=== PATIENT | female | born 1945 | race Hispanic/Latino ===

== ENCOUNTER 2017-01-29 18:16 | Inpatient (IN) | payer MEDICARE, BC ==
[2017-01-29] MEDS ORDERED: Ondansetron HCl/PF 4 MG/2 ML Vial ONE (18:47)
[2017-01-29] MEDS ORDERED: Ketorolac Tromethamine 30 MG/ML VIAL ONE (18:47)
[2017-01-29 19:25] LABS: #Basophils 0.1 thou/uL (0.0-0.2); #Eosinphils 0.2 thou/uL (0.0-0.7); #Lymphocytes 4.2 thou/uL (1.20-3.40); #Monocytes 0.9 thou/uL (0.11-0.59); #Neutrophils 4.6 thou/uL (1.40-6.50); %Basophils 0.8 % (0.0-1.0); %Eosinophils 1.7 % (0.0-10.0); %Lymphocytes 42.6 % (21.0-51.0); %Monocytes 8.9 % (0.0-10.0); Hematocrit 41.1 % (36.0-47.0); Mean Platelet Volume 7.8 fL (7.4-10.4); Red Blood Cell (RBC) Count 4.25 mill/uL (4.20-5.40); White Blood Cell (WBC) Count 9.9 thou/uL (4.8-10.8)
--- NOTE | 2017-01-29 19:30 | CT ---
NONCONTRAST ABDOMEN AND PELVIS CT: Indication: Pain. FINDINGS: No acute abnormality at the lung bases, where visualized. No urolithiasis or obstructive uropathy. T here is moderate distention of the gallbladder with slight increased density intraluminally. Evaluat ion otherwise limited on the basis of noncontrast technique. Evidence of post-operative change at th e distal bowel noted. No free air. IMPRESSION: 1. No urolithiasis or obstructive uropathy. 2. Moderate distention of the gallbladder. This could be further assessed with gallbladder ultrasou nd as necessary. POS: [facility]
[2017-01-29 19:44] LABS: Lactic Acid - Sepsis 0.9 mmol/L (0.5-2.2)
[2017-01-29 19:48] LABS: ALT (SGPT) 17 U/L (8-55); AST (SGOT) 33 U/L (5-34); Alkaline Phosphatase 86 U/L (40-150); Anion Gap 12 mmol/L (10-20); BUN (Urea Nitrogen) 20 mg/dL (9.8-20.1); Bilirubin, Total 0.5 mg/dL (0.2-1.2); Calc. Creatinine Clearance 0 mL/min (70-130); Calcium 9.9 mg/dL (7.8-10.44); Carbon Dioxide 26 mmol/L (23-31); Chloride 104 mmol/L (98-107); Estimated GFR-MDRD 75; Globulin 3.5 g/dL (2.4-3.5); Lipase 30 U/L (8-78); Protein, Total 7.7 g/dL (6.0-8.3)
[2017-01-29 19:51] LABS: Troponin I Less than 0.010 ng/mL (< 0.028)
--- NOTE | 2017-01-29 20:46 | ULT ---
AORTIC ULTRASOUND: History: Abdominal pain. Technique: Multiple longitudinal and transverse images of the abdominal aorta using a multihertz cur vilinear transducer. FINDINGS: Real-time, color flow, and spectral waveform doppler analysis demonstrates the abdominal aorta to be unremarkable. No evidence of abdominal aortic aneurysm is seen. Proximal abdominal aorta diameter o f 1.3 cm, mid abdomen 1.3 cm and distal abdominal aorta 1.2 cm. No evidence of aortic aneurysm or di ssection seen. IMPRESSION: Normal abdominal aortic ultrasound. No evidence of aneurysm or dissection seen. POS: [facility]
[2017-01-29] MEDS ORDERED: Morphine 2 MG/ML SYRINGE ONE (21:27)
--- NOTE | 2017-01-29 22:05 | ULT ---
GALLBLADDER ULTRASOUND: Clinical history: Epigastric pain. Back pain. FINDINGS: There is distention of the gallbladder. No shadowing cholelithiasis. There are subtle, low level ech os which may be on the basis of gallbladder sludge. No gallbladder wall thickening. There is dilatat ion of the common duct up to 8 mm in diameter. No pericholecystic fluid. Bautista's sign is reported a s positive by the patient biller. Incidental note of mild dilatation of the right renal collecting syst em. There is generalized mild heterogeneity of the hepatic parenchyma. IMPRESSION: 1. Moderately distended gallbladder with lower level echos which may relate to gallbladder sludge. M urphy's sign is reported as positive by the patient biller. Recommend clinical correlation. 2. Additional details as described. POS: [facility]
[2017-01-29] MEDS ORDERED: Levofloxacin 500 mg/D5W 100 ml Premix Bag ONE (23:08)
[2017-01-29] MEDS ORDERED: Dextrose 50% Abboject 50 ML SYRINGE SLOW IVP PRN (23:20)
[2017-01-29] MEDS ORDERED: Ondansetron ODT 4 MG TAB PO PRN (23:20)
[2017-01-29] MEDS ORDERED: hydrALAZINE 20 MG/ML VIAL SLOW IVP PRN (23:20)
[2017-01-29] MEDS ORDERED: Dextrose 5% in Water 1,000 ML IV PRN (23:20)
[2017-01-29] MEDS ORDERED: Ondansetron HCl/PF 4 MG/2 ML Vial IVP PRN (23:20)
[2017-01-29] MEDS ORDERED: Morphine 2 MG/ML SYRINGE IVP PRN ×2 (23:20)
[2017-01-29] MEDS ORDERED: Ondansetron ODT 8 MG TAB SL PRN (23:22)
[2017-01-30] MEDS ORDERED: Ondansetron HCl/PF 4 MG/2 ML Vial IVP PRN (00:07)
[2017-01-30] MEDS ORDERED: Ondansetron ODT 4 MG TAB SL PRN (00:07)
[2017-01-30] MEDS ORDERED: Morphine 2 MG/ML SYRINGE SLOW IVP PRN (00:10)
[2017-01-30] MEDS: Ketorolac Tromethamine 30 MG/ML VIAL IVP SCH ×5 (00:30→23:27)
[2017-01-30] MEDS: Sodium Chloride 0.9% 1,000 ML IV SCH ×2 (00:31→08:52)
[2017-01-30] MEDS: Acetaminophen 1,000 MG in Premix Bag 1 BAG IVPB SCH ×4 (00:31→18:02)
[2017-01-30] MEDS: Lactated Ringer's 1,000 ML IV SCH ×3 (00:35→15:49)
[2017-01-30 00:59] VITALS: BMI 43.9
--- NOTE | 2017-01-30 06:00 | HP ---
HISTORY OF PRESENT ILLNESS: Iman Scruggs is a 71-year-old female who has had 5-6 months episodic r ight upper quadrant pain, and flank radiation. This is come and go, she experienced pressure in her upper abdomen along with the symptoms she has been experienced for sometime, who presents because t his episode was especially severe. She is followed by Dr. Merrill Spencer. Abdominal pelvis CAT sca n obtained revealed gallbladder distention, otherwise unremarkable. Abdominal ultrasound reveals mu ltiple gallbladder sludge, sonographic positive Bautista's sign, and bile duct of 8 mm. Abdominal aor tic ultrasound is negative. White count is 9, hemoglobin 13. Liver function test negative. The pa tient remains painful and tender. I have been asked to see her regarding cholecystitis. ALLERGIES: None. TOBACCO: None. ALCOHOL: None. MEDICATIONS: None. PAST SURGICAL HISTORY: A year and a half ago, the patient underwent total abdominal hysterectomy, s plenectomy, colostomy, subsequent colostomy reversal in 2016 for ovarian cancer. She was treated at [facility]. She underwent chemotherapy. She reports no evidence of disease. She has a midline incision from her upper abdomen to her pubis. MEDICATIONS: Tramadol, sertraline, pravastatin, hydrochlorothiazide. REVIEW OF SYSTEMS: Ten-point noncontributory. PHYSICAL EXAMINATION: VITAL SIGNS: Blood pressure 130/74, respiratory rate 20. GENERAL: The patient is in no acute distress. HEENT: Sclerae are nonicteric. SKIN: Nonjaundiced. LUNGS: Clear to auscultation. CARDIAC: Regular rate and rhythm without murmur or gallop. ABDOMEN: Soft, tenderness in right upper quadrant with guarding, positive Bautista's sign. EXTREMITIES: Unremarkable. NEUROLOGIC: Intact. No lymphadenopathy in neck, groins, axilla. LABORATORY DATA: Comprehensive metabolic profile was normal. CBC is normal. ASSESSMENT AND PLAN: Cholecystitis and cholelithiasis. I would recommend laparoscopic video cholec ystectomy. Risk of bleeding, infection, reoperation, possibility of open operation, possibility of biliary injury discussed. She consents and questions answered. We will plan laparoscopic cholecyst ectomy tomorrow. Keep n.p.o.
[2017-01-30] MEDS: Famotidine/PF 20 mg/2ml Vial SLOW IVP SCH ×2 (08:42→22:06)
[2017-01-30] MEDS: Enoxaparin Sodium 40 MG/0.4 ML SYRINGE SC SCH (08:43)
[2017-01-30] MEDS ORDERED: Fentanyl 250 MCG/5 ML VIAL ONE (16:36)
[2017-01-30] MEDS ORDERED: Midazolam HCl 2 mg/2 ml Vial ONE (16:36)
[2017-01-30] MEDS ORDERED: Bupivacaine PF 0.5% 30 ML VIAL ONE (16:49)
[2017-01-30] MEDS ORDERED: Lidocaine 2% w/Epinephrine 1:200K 20 ML VIAL ONE (16:49)
[2017-01-30] MEDS ORDERED: Iothalamate Meglumine 60% 50 ML VIAL FS ONE (17:03)
[2017-01-30] MEDS ORDERED: Glycopyrrolate 0.2 MG/ML 5 ML SYRINGE ONE (17:07)
[2017-01-30] MEDS ORDERED: Ondansetron HCl/PF 4 MG/2 ML Vial ONE (17:07)
[2017-01-30] MEDS ORDERED: Dexamethasone 20 MG/5 ML VIAL ONE (17:07)
[2017-01-30] MEDS ORDERED: Succinylcholine Chloride 20 MG/ML 10 ml SYRINGE FS ONE (17:07)
[2017-01-30] MEDS ORDERED: Lidocaine 1% PF 5 ML VIAL ONE (17:07)
[2017-01-30] MEDS ORDERED: Propofol 200 MG/20 ML VIAL ONE (17:07)
[2017-01-30] MEDS ORDERED: PHENYLEPHRINE-NS 100 MCG/ML 10 ML SYRINGE ONE (17:07)
[2017-01-30] MEDS ORDERED: Meperidine HCl/PF 25 MG/ML VIAL SLOW IVP PRN (19:04)
[2017-01-30] MEDS ORDERED: Promethazine HCl 25 MG/ML VIAL SLOW IVP PRN (19:04)
[2017-01-30] MEDS ORDERED: HYDROmorphone 2 MG/ML VIAL SLOW IVP PRN (19:04)
[2017-01-30] MEDS ORDERED: Morphine Sulfate 2 MG/ML SYRINGE SLOW IVP PRN (19:04)
[2017-01-30] MEDS ORDERED: Fentanyl 100 MCG/2 ML VIAL ONE (19:11)
[2017-01-30] MEDS ORDERED: Acetaminophen 500 MG TAB PO PRN (19:37)
[2017-01-30] MEDS ORDERED: traMADol HCl 50 MG TAB PO PRN ×2 (19:37)
--- NOTE | 2017-01-30 20:29 | RAD ---
INTRAOPERATIVE CHOLANGIOGRAM: 01/30/17 Single intraoperative radiograph of the abdomen is obtained. There is catheterization and injection of the cystic duct with contrast seen in the common hepatic d ucts and common bile ducts. There is flow of contrast into the duodenum. There appears to be a filli ng defect seen in the proximal common bile duct concerning for a possible common bile duct stone jackie malachi a pocket of air. Correlate with fluoroscopic evaluation during the procedure. IMPRESSION: Free flow of contrast into the duodenum. There does appear to be a filling defect seen in the proxim al common bile duct. This may represent gallstone versus air bubble. POS: [facility]
[2017-01-31] MEDS: Lactated Ringer's 1,000 ML IV SCH ×3 (03:50→17:38)
[2017-01-31] MEDS: Ketorolac Tromethamine 30 MG/ML VIAL IVP SCH ×4 (05:24→23:17)
--- NOTE | 2017-01-31 06:25 | OP ---
DATE OF PROCEDURE: 01/30/2017 PREOPERATIVE DIAGNOSES: Cholecystitis, cholelithiasis, extensive adhesions from prior hysterectomy, partial colectomy, colostomy, colostomy reversal and splenectomy. POSTOPERATIVE DIAGNOSES: Cholecystitis, cholelithiasis, extensive adhesions from prior hysterectomy , partial colectomy, colostomy, colostomy reversal and splenectomy. PROCEDURES PERFORMED: Laparoscopic video adhesiolysis extensive for 45 minutes to one hour, laparos copic cholecystectomy and intraoperative cholangiogram. SURGEON: Long Espinosa M.D. ANESTHESIA: General. Local 0.5% Marcaine with epinephrine. PROCEDURE IN DETAIL: The patient taken to the operating room where under general anesthesia, abdome n was prepared with ChloraPrep, draped in routine fashion. Local anesthetic infiltrated into skin a nd subcutaneous tissue about all port sites. The patient had a midline incision from the xiphoid to the pubis. She had a right lower quadrant scar from previous diverting ileostomy. Right subcostal incision made and pneumoperitoneum to 15 mmHg obtained with the Veress needle, replacing it with a 5 port under laparoscopic visualization. There were filmy adhesions around this and was taken down with blunt dissection. Right subcostal incision made and a 5 port placed under laparoscopic visuali zation. Video laparoscope and cold scissors used to take down adhesions. There were adhesions betw een the liver and anterior abdominal wall, these were taken down with careful dissection. I then wa s able to free adhesions to the patient's right abdomen down towards her scar from previous ostomy. There was some visceral adhesions in the midline which were tightly adherent to the abdominal wall and I stayed clear of these under laparoscopic visualization and the right lateral abdomen umbilical level, our incision was made adjacent on the lateral corner of the scar from her diverting ileostom y. A 5 port was placed in a direct laparoscopic visualization staying clear of viscera. Video lapa roscope moved to this port. Further adhesiolysis undertaken freeing the liver and omental adhesions to the anterior abdominal wall and right subxiphoid incision made 11 port placed. At this point, I was able to free the liver more extensively. There were adhesions to the liver edge taken down wit h blunt and sharp dissection using cautery for hemostasis. The gallbladder fundus identified, grasp ed, and reflected cephalad. Infundibulum dissected free. After careful dissection, freeing omental adhesions from about the liver and the gallbladder. Careful dissection revealed the critical view as the cystic artery was doubly clipped and the cystic duct single clipped on the gallbladder side. Opening made in the cystic duct, cholangiocath inserted and cholangiogram was obtained using fluoro scopy revealing free flow of contrast into the duodenum without filling defects in the common hepati c, common bile, left and right hepatic ducts. There was a filling defect in the common duct did juve ear more like a bubble. It was very smooth. It was mobile. It was felt not to be a stone. Carefu l dissection carried out and cholangiograms were normal. Cholangiocath removed. Cystic duct stump doubly clipped. Cystic artery and duct divided and gallbladder dissected free from the liver bed ob taining good hemostasis prior to division of final peritoneal attachments. Gallbladder and contents removed and submitted to Pathology. Good hemostasis ensured. Arixtra placed over the liver surfac e. Irrigant evacuated. All instruments removed and all skin incisions approximated with interrupte d subdermal 4-0 Monocryl and DermaGlue applied.
[2017-01-31 06:51] LABS: #Basophils 0.1 thou/uL (0.0-0.2); #Lymphocytes 1.4 thou/uL (1.20-3.40); #Monocytes 0.8 thou/uL (0.11-0.59); #Neutrophils 6.5 thou/uL (1.40-6.50); %Basophils 0.9 % (0.0-1.0); %Eosinophils 0.1 % (0.0-10.0); %Lymphocytes 15.5 % (21.0-51.0); Hematocrit 33.6 % (36.0-47.0); Mean Platelet Volume 8.4 fL (7.4-10.4); Red Blood Cell (RBC) Count 3.45 mill/uL (4.20-5.40); White Blood Cell (WBC) Count 8.7 thou/uL (4.8-10.8)
[2017-01-31 07:00] LABS: ALT (SGPT) 151 U/L (8-55); AST (SGOT) 197 U/L (5-34); Alkaline Phosphatase 60 U/L (40-150); Anion Gap 12 mmol/L (10-20); BUN (Urea Nitrogen) 15 mg/dL (9.8-20.1); Bilirubin, Total 0.6 mg/dL (0.2-1.2); Calc. Creatinine Clearance 132 mL/min (70-130); Calcium 8.7 mg/dL (7.8-10.44); Carbon Dioxide 22 mmol/L (23-31); Chloride 104 mmol/L (98-107); Estimated GFR-MDRD 86; Globulin 2.8 g/dL (2.4-3.5)
[2017-01-31] MEDS: Famotidine/PF 20 mg/2ml Vial SLOW IVP SCH ×2 (08:46→21:29)
[2017-01-31] MEDS: Hydrochlorothiazide 25 MG TAB PO SCH (08:46)
[2017-01-31] MEDS: Enoxaparin Sodium 40 MG/0.4 ML SYRINGE SC SCH (08:47)
--- NOTE | 2017-01-31 11:30 | PRG ---
DATE OF SERVICE: 01/31/2017 SUBJECTIVE: Ms. Scruggs is one day postoperative laparoscopic cholecystectomy, extensive adhesiolysi s. She has had a prior history of hysterectomy, splenectomy, colon resection, partial hepatectomy, diverting ileostomy and reversal for ovarian cancer. No evidence of disease currently. The patient last night and this morning has had nausea. She reports having experienced nausea postoperative in the past. This was not communicated prior to her surgery. Patient has had Zofran. She has not to lerated liquids. She states that her abdominal pain; however, has resolved. This morning, her whit e count is 8.7, hemoglobin 11.3. Basic metabolic profile; sodium 134, AST and ALT 197 and 151 respe ctfully, bilirubin 0.6. PHYSICAL EXAMINATION: LUNGS: Clear to auscultation. CARDIAC: Regular rate and rhythm without murmur or gallop. ABDOMEN: Soft, bowel sounds present, nondistended. Surgical sites look good. Postoperative tender ness, otherwise abdomen is soft. VITAL SIGNS: Temperature 98.4 degrees, heart rate 91, respiratory rate 16, blood pressure 122/66. ASSESSMENT AND PLAN: Postoperative extensive adhesiolysis and laparoscopic cholecystectomy. We will continue to support her intravenous fluids until she tolerates her diet. We will obtain an magneti c resonance cholangiopancreatography as during her operation, there was a questionable filling defec t during her cholangiogram thought to be probably an air bubble. I reviewed this with Dr. Suresh main, Gastroenterology and he felt that it was so distinct is probably an air bubble given her nausea a nd her large cystic duct, we will obtain magnetic resonance cholangiopancreatography today.
[2017-01-31] MEDS ORDERED: Scopolamine 1.5 mg/72 hour Patch TD SCH (12:00)
[2017-01-31] MEDS ORDERED: Metoclopramide HCl 10 MG/2 ML VIAL IVP PRN (14:37)
--- NOTE | 2017-01-31 17:23 | MRI ---
MRI ABDOMEN WITHOUT CONTRAST MRCP 01/31/17 HISTORY: Laparoscopic cholecystectomy performed yesterday with a filling defect in the proximal common bile d uct on intraoperative cholangiogram. FINDINGS: Changes of cholecystectomy are present with inflammatory changes and small amount of fluid in the ri ght upper quadrant. No abnormal biliary ductal dilatation is seen. No filling defects are seen in th e biliary ducts to suggest choledocholithiasis. Cystic duct remnant is present without filling defec ts to suggest calculi. Pancreatic duct caliber is normal. The patient is post splenectomy. The liver , pancreas, adrenal glands and kidneys are unremarkable. Artifact from air is seen in the right uppe r anterior abdominal wall likely from recent surgery. There is no evidence of aneurysmal dilatation of the abdominal aorta. The bone marrow signal is normal. IMPRESSION: No evidence of choledocholithiasis. POS: [facility]
[2017-02-01] MEDS: Ketorolac Tromethamine 30 MG/ML VIAL IVP SCH ×2 (05:32→12:55)
[2017-02-01] MEDS: Lactated Ringer's 1,000 ML IV SCH (05:36)
[2017-02-01 06:39] LABS: #Basophils 0.1 thou/uL (0.0-0.2); #Eosinphils 0.1 thou/uL (0.0-0.7); #Lymphocytes 2.3 thou/uL (1.20-3.40); #Monocytes 0.7 thou/uL (0.11-0.59); #Neutrophils 7.3 thou/uL (1.40-6.50); %Basophils 1.1 % (0.0-1.0); %Eosinophils 0.6 % (0.0-10.0); %Lymphocytes 22.1 % (21.0-51.0); %Monocytes 6.2 % (0.0-10.0); Hematocrit 33.2 % (36.0-47.0); Mean Platelet Volume 8.2 fL (7.4-10.4); Red Blood Cell (RBC) Count 3.44 mill/uL (4.20-5.40); White Blood Cell (WBC) Count 10.5 thou/uL (4.8-10.8)
[2017-02-01 06:58] LABS: ALT (SGPT) 133 U/L (8-55); AST (SGOT) 129 U/L (5-34); Alkaline Phosphatase 60 U/L (40-150); Anion Gap 12 mmol/L (10-20); BUN (Urea Nitrogen) 11 mg/dL (9.8-20.1); Bilirubin, Total 0.8 mg/dL (0.2-1.2); Calc. Creatinine Clearance 127 mL/min (70-130); Carbon Dioxide 26 mmol/L (23-31); Chloride 104 mmol/L (98-107); Estimated GFR-MDRD 81; Globulin 2.7 g/dL (2.4-3.5); Protein, Total 6.1 g/dL (6.0-8.3)
[2017-02-01] MEDS ORDERED: Mag-Al 1200 mg/1200 mg/30 ML UDCUP PO PRN (08:57)
[2017-02-01] MEDS ORDERED: Famotidine 20 MG TAB PO SCH (09:00)
--- NOTE | 2017-02-01 09:11 | PRG ---
DATE OF SERVICE: 02/01/2017 Iman Scruggs is doing better today. Her nausea is less, although not resolved. MRCP was yesterday for choledocholithiasis. Liver function tests this morning are a normal bilirubin, normal alkaline phosphatase, AST, ALT are diminished at 129 and 133 respectively. Diminished relative to yesterday. Basic metabolic profile is normal. White count 10, hemoglobin of 11. She denies abdominal pain. LUNGS: Clear to auscultation. CARDIAC: Regular rate and rhythm without murmur or gallop. ABDOMEN: Soft, flat, nondistended and nontender. ASSESSMENT AND PLAN: Nausea, vomiting, and postoperatively. Expect discharge home later today if s he tolerates her diet. Would plan follow up in my office in 2-3 weeks. We will check on her later t stas regarding discharge status.
[2017-02-01] MEDS: Hydrochlorothiazide 25 MG TAB PO SCH (10:08)
[2017-02-01] MEDS: Enoxaparin Sodium 40 MG/0.4 ML SYRINGE SC SCH (10:11)
[2017-02-01 12:52] VITALS: BP 129/81; TEMP 98.4
--- NOTE | 2017-02-01 13:51 | PRG ---
DATE OF SERVICE: 02/01/2017 Iman Scruggs is doing well today. She is tolerating her diet better. She is stable for discharge home. She has not had any pain and does not want anything for pain, but I have given her tramadol just in case she needs it. She will follow up in my office in 2-3 weeks. Diet as tolerated. No ac tivity restrictions.
--- NOTE | 2017-02-01 14:21 | DIS ---
DATE OF ADMISSION: 01/29/2017 DATE OF DISCHARGE: 02/01/2017 DISCHARGE DIAGNOSES: Cholecystitis, cholelithiasis. PROCEDURES THIS HOSPITALIZATION: Laparoscopic cholecystectomy, adhesiolysis. HISTORY: A 71-year-old female, 1-1/2 years ago, status post laparotomy, hysterectomy, splenectomy, partial hepatectomy colectomy, diverting ileostomy, subsequent ileostomy reversal, presents with in tractable pain, cholecystitis and cholelithiasis. Ultrasound confirms sludge and stones. Liver fun ction tests were normal. Bile duct 8 mm. The patient was admitted and given intravenous antibiotic s overnight, taken to the operating room for a laparoscopic cholecystectomy. Findings were extensive adhesions making laparoscopic cholecystectomy difficult, although it was acc omplished. Liver had to be mobilized, adhesions taken down from the liver. Gallbladder removed. C holangiogram was obtained, were normal with a questionable filling defect thought to probably be an air bubble. The next morning she was having persistent nausea, although transaminases were elevated , bilirubin and alkaline phosphatase were normal. She denied any pain. She was having persistent n ausea. MRCP was obtained and was normal. The patient continued intravenous fluids and hydration an d convalesced to tolerate her diet and is being discharged home at this time. Ultram #25 given. Fo llow up in my office in 2-3 weeks.
[2017-02-01] MEDS ORDERED: Atorvastatin Calcium 10 MG TAB PO SCH (21:00)
[2017-02-01] MEDS ORDERED: Pravastatin Sodium 40 MG TAB PO SCH (21:00)
== END 2017-02-01 15:15 | disposition home or self-care (01) | DRG 419 ==
LOC: ERS 18:16 → SURG B 22:14
PROVIDERS: ADMIT Specialist; ATTEND Specialist
PROC: 0FT44ZZ Resection of Gallbladder, Percutaneous Endoscopic Approach (ICD-10-PCS; principal; 2017-01-30)
PROC: 0DNU4ZZ Release Omentum, Percutaneous Endoscopic Approach (ICD-10-PCS; 2017-01-30)
PROC: 0FN04ZZ Release Liver, Percutaneous Endoscopic Approach (ICD-10-PCS; 2017-01-30)
PROC: BF101ZZ Fluoroscopy of Bile Ducts using Low Osmolar Contrast (ICD-10-PCS; 2017-01-30)
DX: K80.00 Calculus of gallbladder with acute cholecystitis without obstruction (principal); I10 Essential (primary) hypertension; Z85.43 Personal history of malignant neoplasm of ovary; Z92.21 Personal history of antineoplastic chemotherapy; Z90.49 Acquired absence of other specified parts of digestive tract; E78.5 Hyperlipidemia, unspecified; F32.9 Major depressive disorder, single episode, unspecified
CPT/HCPCS: 36415; 47532; 74176; 74181; 76705; 76775; 80053; 82553; 83605; 83690; 83735; 83880; 84484; 85025; 88304; 96365; 96375; A4216; J0131; J1100; J1610; J1650; J1885; J1956; J2001; J2250; J2270; J2405; J2704; J2765; J3010; Q0162; Q9961; S0020; S0028

== ENCOUNTER 2017-09-21 13:44 | Outpatient (CLI) | payer MEDICARE, BC | END 2017-09-21 13:45 | disposition home or self-care (01) | LOC: BICMAMMO 13:44 | PROVIDERS: ATTEND Internal Medicine Hematology & Oncology | DX: Z12.31 Encounter for screening mammogram for malignant neoplasm of breast (principal); Z85.43 Personal history of malignant neoplasm of ovary | CPT/HCPCS: 77063; 77067 ==

== ENCOUNTER 2017-11-19 09:00 | Day surgery (SDC) | payer MEDICARE, BC ==
[2017-11-19] MEDS ORDERED: diphenhydrAMINE 25 MG CAP PO SCH (09:45)
[2017-11-19] MEDS ORDERED: Acetaminophen 500 MG TAB PO SCH (09:45)
[2017-11-19] MEDS ORDERED: Sodium Chloride 0.9% 30 ML ONE (09:56)
[2017-11-19] MEDS ORDERED: Furosemide 20 MG/2 ML VIAL SLOW IVP SCH (10:00)
--- NOTE | 2017-11-19 10:01 | RAD ---
PA AND LATERAL CHEST: History Shortness of breath. COMPARISON: 06/26/14. FINDINGS: The lungs appear clear of infiltrate. There is mild hyperexpansion and there is mild apical pleural thickening which appears stable. Heart size is normal. Mild aortic calcification. Thoracic vertebr ae maintain height and alignment. IMPRESSION: No acute finding. No significant interval change. POS: [facility]
[2017-11-19 10:36] LABS: Anion Gap 10 mmol/L (10-20); BUN (Urea Nitrogen) 14 mg/dL (9.8-20.1); Calc. Creatinine Clearance 0 mL/min (70-130); Calcium 9.8 mg/dL (7.8-10.44); Carbon Dioxide 25 mmol/L (23-31); Chloride 106 mmol/L (98-107); Estimated GFR-MDRD 81; Glucose 93 mg/dL (83-110); Sodium 137 mmol/L (136-145)
[2017-11-19 15:31] VITALS: BP 135/74; TEMP 98.2
== END 2017-11-19 14:00 | disposition home or self-care (01) ==
LOC: RAD 09:00 → ONC/OP 14:00
PROVIDERS: ATTEND Internal Medicine Hematology & Oncology
DX: D64.9 Anemia, unspecified (principal); D69.6 Thrombocytopenia, unspecified
CPT/HCPCS: 36430; 71046; 80048; 86850; 86900; 86901; A4216; J1940; P9016

== ENCOUNTER 2018-02-18 11:17 | Outpatient (CLI) | payer MEDICARE, BC ==
--- NOTE | 2018-02-18 13:23 | RAD ---
PA AND LATERAL VIEWS CHEST: HISTORY: Cough. FINDINGS: Comparison is made with the exam of 11/19/2017. The heart size is normal. The aorta is tortuous. Th e lungs are expanded with stable biapical pleural thickening. No lobar consolidation, pneumothoraces , or pleural effusions are seen. There are degenerative changes in the spine. IMPRESSION: No radiographic evidence of acute cardiopulmonary process. POS: [facility]
== END 2018-02-18 11:18 | disposition home or self-care (01) ==
LOC: BICRAD 11:17
PROVIDERS: ATTEND Family Medicine
DX: R05 Cough (principal)
CPT/HCPCS: 71046

== ENCOUNTER 2018-11-07 15:46 | Outpatient (CLI) | payer MEDICARE, BC ==
--- NOTE | 2018-11-07 16:55 | MMO ---
Bilateral MAMMO Bilat Screen DDI+DENZEL. CLINICAL HISTORY: Patient is 73 years old and is seen for screening. The patient has no family history of breast cancer. The patient has a history of ovarian cancer. VIEWS: The views performed were: bilateral craniocaudal with tomosynthesis and bilateral mediolateral oblique with tomosynthesis. FILMS COMPARED: The present examination has been compared to prior imaging studies performed at [facility] on 08/18/2013, 05/29/2015, 08/15/2016 and 09/21/2017. MAMMOGRAM FINDINGS: There are scattered fibroglandular densities. There is a mass measuring 6 millimeters seen in the middle region of the left breast at 9 o'clock. In the right breast, there are no suspicious masses, calcifications or areas of architectural distortion. IMPRESSION: MASS IN THE LEFT BREAST REQUIRES ADDITIONAL EVALUATION. SPOT COMPRESSION IS RECOMMENDED. AN ULTRASOUND EXAM IS RECOMMENDED. THE RESULTS OF THIS EXAM WERE SENT TO THE PATIENT. ACR BI-RADS Category 0 - Incomplete: Need additional imaging evaluation. [facility] will notify the patient of the need for additional imaging services. MAMMOGRAPHY NOTE: 1. A negative mammogram report should not delay a biopsy if a dominant of clinically suspicious mass is present. 2. Approximately 10% to 15% of breast cancers are not detected by mammography. 3. Adenosis and dense breasts may obscure an underlying neoplasm. Reported by: April FLEMING Electonically Signed: [id number]
== END 2018-11-07 15:47 | disposition home or self-care (01) ==
LOC: BICMAMMO 15:46
PROVIDERS: ATTEND Family Medicine
DX: Z12.31 Encounter for screening mammogram for malignant neoplasm of breast (principal); N63.20 Unspecified lump in the left breast, unspecified quadrant; Z85.43 Personal history of malignant neoplasm of ovary
CPT/HCPCS: 77063; 77067

== ENCOUNTER 2018-11-12 12:45 | Outpatient (CLI) | payer MEDICARE, BC ==
--- NOTE | 2018-11-12 13:39 | MMO ---
Left Breast MAMMO Unilat Diag DDI LT+DENZEL. CLINICAL HISTORY: Patient is 73 years old and is seen for diagnostic exam. The patient has no family history of breast cancer. The patient has a history of ovarian cancer. VIEWS: The views performed were: left craniocaudal spot compression with tomosynthesis; left mediolateral oblique spot compression with tomosynthesis; and left mediolateral with tomosynthesis. FILMS COMPARED: The present examination has been compared to prior imaging studies performed at [facility] on 08/15/2016, 09/21/2017, 11/07/2018 and 11/12/2018. MAMMOGRAM FINDINGS: There are scattered fibroglandular densities. There is an equal density, oval mass measuring 5 millimeters with circumscribed margins seen in the left breast at 9 o'clock. The mass was shown to be a cyst on ultrasound. There are no suspicious masses, suspicious calcifications, or new areas of architectural distortion. IMPRESSION: THERE IS NO MAMMOGRAPHIC EVIDENCE OF MALIGNANCY. A ROUTINE FOLLOW-UP MAMMOGRAM IN 1 YEAR IS RECOMMENDED. THE RESULTS OF THIS EXAM WERE SENT TO THE PATIENT. ACR BI-RADS Category 2 - Benign finding MAMMOGRAPHY NOTE: 1. A negative mammogram report should not delay a biopsy if a dominant of clinically suspicious mass is present. 2. Approximately 10% to 15% of breast cancers are not detected by mammography. 3. Adenosis and dense breasts may obscure an underlying neoplasm. Reported by: ANAYA VARMA MD Electonically Signed: [id number]
--- NOTE | 2018-11-12 14:34 | ULT ---
LIMITED LEFT BREAST ULTRASOUND: Date: 11/12/18 PROVIDED CLINICAL HISTORY: Abnormal mammogram. FINDINGS: Limited sonographic interrogation of the left breast was performed in the region of mammographic conc freddie. A simple cyst is seen in this location, corresponding to the mammogram finding. IMPRESSION: BI-RADS Category 2 - Benign findings. Return to annual screening mammography recommended. POS: [facility]
== END 2018-11-12 12:46 | disposition home or self-care (01) ==
LOC: BICMAMMO 12:45
PROVIDERS: ATTEND Family Medicine
DX: N63.24 Unspecified lump in the left breast, lower inner quadrant (principal); Z85.43 Personal history of malignant neoplasm of ovary
CPT/HCPCS: 76642; 77065; G0279

== ENCOUNTER 2020-01-21 09:18 | Outpatient (CLI) | payer MEDICARE, BC ==
--- NOTE | 2020-01-21 09:48 | BD ---
EXAM: Bone densitometry using DEXA HISTORY: 74 yo female. Screening for postmenopausal osteoporosis FINDINGS: L1--bone mineral density 0.819 g/sq cm; T score -1.6 ; Z score 0.5 L2--bone mineral density 0.883 g/sq cm; T score -1.3 ; Z score 1.0 L3--bone mineral density 0.898 g/sq cm; T score -1.7 ; Z score 0.7 L4--bone mineral density 0.712 g/sq cm; T score -2.2 ; Z score -0.7 Total L1-L4--bone mineral density 0.827 g/sq cm; T score -2.0 ; Z score 0.3 Left femoral neck--bone mineral density0.633; T score -1.9 ; Z score 0.0 Total proximal left femur--bone mineral density 0.779; T score -1.3 ; Z score 0.3 The 10 year fracture risk for a major osteoporotic fracture is 7% and for a hip fracture is 1.5%. IMPRESSION: Osteopenia
--- NOTE | 2020-01-21 09:56 | MMO ---
Bilateral MAMMO Bilat Screen DDI+DENZEL. CLINICAL HISTORY: Patient is 74 years old and is seen for screening. The patient has no family history of breast cancer. The patient has a history of ovarian cancer. VIEWS: The views performed were: bilateral craniocaudal with tomosynthesis and bilateral mediolateral oblique with tomosynthesis. FILMS COMPARED: The present examination has been compared to prior imaging studies performed at [facility] on 09/21/2017, 11/07/2018 and 11/12/2018. This study has been interpreted with the assistance of computer-aided detection. MAMMOGRAM FINDINGS: There are scattered fibroglandular densities. There are stable benign appearing calcifications seen in both breasts. There are also vascular calcifications. There are no suspicious masses, suspicious calcifications, or new areas of architectural distortion. IMPRESSION: THERE IS NO MAMMOGRAPHIC EVIDENCE OF MALIGNANCY. A ROUTINE FOLLOW-UP MAMMOGRAM IN 1 YEAR IS RECOMMENDED. THE RESULTS OF THIS EXAM WERE SENT TO THE PATIENT. ACR BI-RADS Category 2 - Benign finding MAMMOGRAPHY NOTE: 1. A negative mammogram report should not delay a biopsy if a dominant of clinically suspicious mass is present. 2. Approximately 10% to 15% of breast cancers are not detected by mammography. 3. Adenosis and dense breasts may obscure an underlying neoplasm. Reported by: ANAYA VARMA MD Electonically Signed: [id number]
== END 2020-01-21 09:19 | disposition home or self-care (01) ==
LOC: BICMAMMO 09:18
PROVIDERS: ATTEND Family Medicine
DX: Z12.31 Encounter for screening mammogram for malignant neoplasm of breast (principal); Z13.820 Encounter for screening for osteoporosis; Z78.0 Asymptomatic menopausal state; M85.89 Other specified disorders of bone density and structure, multiple sites; Z85.43 Personal history of malignant neoplasm of ovary
CPT/HCPCS: 77063; 77067; 77080

== ENCOUNTER 2020-02-23 15:24 | Emergency (ER) | payer MEDICARE, BC ==
[~2020-02-23 15:24] MED LIST: Iopamidol-370 76% 500 ML 1 ML ONE
[2020-02-23 16:06] LABS: Hemoglobin 14.5 g/dL (12.0-16.0); Mean Corpuscular HGB CONC 33.2 g/dL (32.0-36.0); Mean Corpuscular Hemoglobin 31.4 pg (27.0-31.0); Mean Corpuscular Volume 94.6 fL (78.0-98.0); Platelet Count 249 thou/uL (130-400); RBC Distribution Width 12.8 % (11.5-14.5); Red Blood Cell (RBC) Count 4.62 mill/uL (4.20-5.40); White Blood Cell (WBC) Count 7.2 thou/uL (4.8-10.8)
[2020-02-23 16:18] LABS: Band 2 % (5-11); Lymphocytes 49 % (21-51); MDiff Complete? YES; Monocytes 10 % (0-10); Neutrophil 31 % (42-75); Platelet Morphology Comment Appears Adequate; RBC Morphology Normal; Reactive Lymphocytes 7 % (0-10)
[2020-02-23 16:24] LABS: ALT (SGPT) 19 U/L (8-55); AST (SGOT) 28 U/L (5-34); Albumin 4.1 g/dL (3.4-4.8); Alkaline Phosphatase 72 U/L (40-110); Anion Gap 15 mmol/L (10-20); BUN (Urea Nitrogen) 14 mg/dL (9.8-20.1); Bilirubin, Total 0.2 mg/dL (0.2-1.2); Calc. Creatinine Clearance 0 mL/min (70-130); Calcium 9.4 mg/dL (7.8-10.44); Carbon Dioxide 26 mmol/L (23-31); Chloride 99 mmol/L (98-107); Estimated GFR-MDRD 66; Globulin 3.5 g/dL (2.4-3.5); Glucose 100 mg/dL (83-110); Potassium 3.4 mmol/L (3.5-5.1); Protein, Total 7.6 g/dL (6.0-8.3); Sodium 137 mmol/L (136-145)
--- NOTE | 2020-02-23 16:41 | RAD ---
Chest one view HISTORY: Weakness. Cough. COVID exposure. COMPARISON: 02/18/2018. FINDINGS: Cardiac silhouette and pulmonary vasculature are unremarkable. Mediastinum is midline with aortic calcification. Lungs are hyperinflated. No lobar consolidation or evidence of pneumothorax. Metallic clips overlie t he upper abdomen. IMPRESSION : Pulmonary hyperinflation appears stable. Atherosclerosis.
--- NOTE | 2020-02-23 17:08 | CT ---
CT OF THE ABDOMEN AND PELVIS WITH IV CONTRAST INDICATION: History of Covid exposure with back pain, left upper quadrant abdominal pain, night sweat s and weakness COMPARISON: CT the abdomen and pelvis with contrast dated December 08, 2014 FINDINGS: ABDOMEN: Lung bases: There are peripheral subpleural groundglass airspace opacities within both lower lobes. Liver: Mild fatty liver Gallbladder: Surgically absent Pancreas: Normal. Adrenal glands: Normal. Spleen: Surgically absent Kidneys and ureters: Normal. No hydronephrosis. Vasculature: There are moderate vascular calcifications seen involving the visualized vasculature. Th ere is extensive surgical clips seen within the retroperitoneum surrounding the aorta. Lymph nodes:No lymphadenopathy. Free fluid in abdomen:No free fluid is evident. PELVIS: Small and large bowel: Postsurgical change of a partial small bowel resection with primary anastomosi s in the right lower quadrant of the abdomen. There is also postsurgical change of a partial colectomy and primary colorectal anastomosis. The small and large bowel are of normal caliber. Appendix:Normal Bladder: Normal. Rectal and perirectal soft tissues:Normal. Reproductive structures: Surgically absent Free fluid in pelvis: No free fluid is evident. Lymphadenopathy pelvis: No lymphadenopathy is evident. Osseous structures: No acute osseous abnormality. No destructive osteolytic or osteoblastic lesion i s identified. There is scattered degenerative and osteoarthritic changes. Soft tissues:Normal. IMPRESSION: 1. Bilateral subpleural groundglass airspace opacities is suspicious for an atypical infectious proce ss. Recommend correlation with Covid testing. 2. Mild fatty liver. 3. Extensive postsurgical change of the abdomen and pelvis.
[2020-02-23 18:42] LABS: Bilirubin Negative (Negative); Blood, Urine Negative (Negative); Clarity Clear (Clear); Glucose, Urine (Dipstick) Normal (Negative); Ketone, Urine Trace mg/dL (Negative); Leukocyte Negative Leu/uL (Negative); Nitrite Negative (Negative); Protein, Urine (Dipstick) Negative (Neg-Trace); Specific Gravity, Urine 1.016 (1.002-1.036); Urobilinogen Normal mg/dL (Less than 2)
[2020-02-24 08:42] LABS: SARS-CoV-2 MS2 Positive; SARS-CoV-2 N Gene Negative; SARS-CoV-2 S Gene Negative; SARS-CoV-2 by NAA Not Detected (NotDetected); SARS-CoV-2 orf1ab Negative
== END 2020-02-23 19:16 | disposition home or self-care (01) ==
LOC: ERS 15:24
DX: R53.1 Weakness (principal); Z20.828 Contact with and (suspected) exposure to other viral communicable diseases; E78.00 Pure hypercholesterolemia, unspecified; I10 Essential (primary) hypertension; F32.9 Major depressive disorder, single episode, unspecified; Z79.899 Other long term (current) drug therapy
CPT/HCPCS: 71045; 74177; 80053; 81003; 83605; 84484; 85025; 93005; 99285; U0003; 36415; 87635; Q9967

== ENCOUNTER 2020-02-28 11:41 | Emergency (ER) | payer MEDICARE, BC ==
[2020-02-28 12:40] LABS: #Basophils 0.2 thou/uL (0.0-0.2); #Lymphocytes 4.6 thou/uL (1.20-3.40); #Monocytes 0.8 thou/uL (0.11-0.59); #Neutrophils 4.2 thou/uL (1.40-6.50); %Basophils 2.1 % (0.0-1.0); %Eosinophils 0.2 % (0.0-10.0); %Lymphocytes 46.5 % (21.0-51.0); %Monocytes 8.6 % (0.0-10.0); %Neutrophils 42.7 % (42.0-75.0); Hemoglobin 15.7 g/dL (12.0-16.0); Mean Corpuscular HGB CONC 34.7 g/dL (32.0-36.0); Mean Corpuscular Hemoglobin 32.5 pg (27.0-31.0); Mean Corpuscular Volume 93.6 fL (78.0-98.0); Platelet Count 199 thou/uL (130-400); RBC Distribution Width 12.6 % (11.5-14.5); Red Blood Cell (RBC) Count 4.82 mill/uL (4.20-5.40); White Blood Cell (WBC) Count 9.8 thou/uL (4.8-10.8)
--- NOTE | 2020-02-28 13:13 | RAD ---
EXAM: Chest one view: HISTORY: Cough, body aches diarrhea COMPARISON: 02/23/2020 FINDINGS: Rotation to the right. Mild hyperinflation. Atherosclerosis of the aorta. Heart size: Within normal limits. Lungs: Clear of acute process. No evidence for confluent lobar pneumonia, significant pleural effusion, acute edema, or pneumothorax , or other significant acute process. IMPRESSION: No significant acute intrathoracic disease.
[2020-02-28 13:23] LABS: ALT (SGPT) 12 U/L (8-55); AST (SGOT) 22 U/L (5-34); Alkaline Phosphatase 64 U/L (40-110); Anion Gap 18 mmol/L (10-20); BUN (Urea Nitrogen) 15 mg/dL (9.8-20.1); Bilirubin, Total 0.4 mg/dL (0.2-1.2); Calc. Creatinine Clearance 0 mL/min (70-130); Calcium 9.8 mg/dL (7.8-10.44); Carbon Dioxide 23 mmol/L (23-31); Chloride 98 mmol/L (98-107); Estimated GFR-MDRD 68; Globulin 3.9 g/dL (2.4-3.5); Glucose 104 mg/dL (83-110); Potassium 3.1 mmol/L (3.5-5.1); Protein, Total 7.9 g/dL (6.0-8.3); Sodium 136 mmol/L (136-145)
[2020-02-28] MEDS ORDERED: Potassium Chloride 20 MEQ TAB ONE (14:04)
== END 2020-02-28 14:17 | disposition home or self-care (01) ==
LOC: ERS 11:41
DX: R05 Cough (principal); R19.7 Diarrhea, unspecified; R53.1 Weakness; Z20.828 Contact with and (suspected) exposure to other viral communicable diseases; I10 Essential (primary) hypertension; E78.5 Hyperlipidemia, unspecified; F32.9 Major depressive disorder, single episode, unspecified; Z79.899 Other long term (current) drug therapy
CPT/HCPCS: 71045; 80053; 83605; 84484; 85025; 93005

== ENCOUNTER 2020-03-01 22:14 | Emergency (ER) | payer MEDICARE, BC ==
[~2020-03-01 22:14] MED LIST changes: +Iopamidol 370 76% 50 ML VIAL FS ONE; -Iopamidol-370 76% 500 ML 1 ML ONE
[2020-03-01] MEDS ORDERED: Lidocaine Viscous Sol 2% 15 ml UD Cup ONE (22:54)
[2020-03-01] MEDS ORDERED: Mag-Al 1200 mg/1200 mg/30 ML UDCUP ONE (22:54)
--- NOTE | 2020-03-01 23:21 | RAD ---
Portable frontal chest radiograph: 03/01/2020 COMPARISON: 02/28/2020 HISTORY: Chest pain FINDINGS: Stable increased linear interstitial density with pulmonary hyperinflation suggesting air t rapping. No pneumothorax or pleural fluid. No focal consolidation or alveolar edema. Multiple postoperative clips are noted in the upper abdomen. Minimal nodularity is noted in the left lung base versus groundglass opacity which may be associated with infectious pneumonitis. IMPRESSION: Subtle hazy density in the left base suspicious for atypical infectious pneumonitis. No f ocal consolidation or alveolar edema. Recommend follow-up imaging following treatment in 4-6 weeks to document resolution unless clinically indicated sooner.
[2020-03-01 23:26] LABS: ALT (SGPT) 15 U/L (8-55); AST (SGOT) 19 U/L (5-34); Albumin 3.6 g/dL (3.4-4.8); Alkaline Phosphatase 58 U/L (40-110); Anion Gap 17 mmol/L (10-20); BUN (Urea Nitrogen) 19 mg/dL (9.8-20.1); Bilirubin, Total 0.4 mg/dL (0.2-1.2); CK (CPK) 22 U/L (29-168); Calc. Creatinine Clearance 0 mL/min (70-130); Calcium 9.2 mg/dL (7.8-10.44); Carbon Dioxide 20 mmol/L (23-31); Chloride 102 mmol/L (98-107); Estimated GFR-MDRD 73; Globulin 3.5 g/dL (2.4-3.5); Glucose 167 mg/dL (83-110); Lipase 432 U/L (8-78); Potassium 3.6 mmol/L (3.5-5.1); Protein, Total 7.1 g/dL (6.0-8.3); Sodium 135 mmol/L (136-145)
[2020-03-01 23:32] LABS: Hemoglobin 14.3 g/dL (12.0-16.0); Mean Corpuscular HGB CONC 31.8 g/dL (32.0-36.0); Mean Corpuscular Hemoglobin 29.3 pg (27.0-31.0); Mean Corpuscular Volume 92.1 fL (78.0-98.0); Mean Platelet Volume 8.8 fL (7.4-10.4); Platelet Count 244 thou/uL (130-400); RBC Distribution Width 12.8 % (11.5-14.5); Red Blood Cell (RBC) Count 4.88 mill/uL (4.20-5.40); White Blood Cell (WBC) Count 7.3 thou/uL (4.8-10.8)
[2020-03-02 00:07] LABS: #Lymphocytes 1.5 thou/uL (1.20-3.40); #Monocytes 0.5 thou/uL (0.11-0.59); #Neutrophils 5.3 thou/uL (1.40-6.50); %Basophils 0.1 % (0.0-1.0); %Eosinophils 0.1 % (0.0-10.0); %Lymphocytes 20.5 % (21.0-51.0); %Monocytes 7.3 % (0.0-10.0); RBC Morphology Normal
--- NOTE | 2020-03-02 08:30 | CT ---
PRELIMINARY REPORT/[facility]/EMERGENCY AFTER HOURS PROCEDURE: EXAM: CT Abdomen and Pelvis with Intravenous Contrast CLINICAL HISTORY: Abdominal pain TECHNIQUE: Axial computed tomography images of the abdomen and pelvis with intravenous contrast. CONTRAST: With; ISOVUE 370,100mL COMPARISON: None provided. FINDINGS: LUNG BASES: Patchy groundglass opacities at the posterior lung bases which are nonspecific but may represent pneu monia. LIVER: Unremarkable. GALLBLADDER AND BILE DUCTS: Status post cholecystectomy. The common duct is distended measuring up to 1.1 cm with mild central in trahepatic biliary ductal dilatation which may be seen in the setting status post cholecystectomy. PANCREAS: Unremarkable. SPLEEN: Status post splenectomy. ADRENAL GLANDS: Left adrenal gland which is nonspecific. KIDNEYS, URETERS, AND BLADDER: Unremarkable. No hydronephrosis or nephrolithiasis. No ureteral or bladder calculi. STOMACH AND BOWEL: Surgical anastomosis small bowel of the terminal ileum, which is patent. Distal colonic surgical anas tomosis. No bowel wall thickening. No bowel obstruction. APPENDIX: Normal appendix. PERITONEUM: No free fluid. No free air. LYMPH NODES: No lymphadenopathy. REPRODUCTIVE: Unremarkable as visualized. VASCULATURE: No aortic aneurysm. BONES: Degenerative changes of the spine most prominent at L5/S1 ABDOMINAL WALL AND SOFT TISSUES: Unremarkable. MISCELLANEOUS: Multiple retroperitoneal surgical clips. IMPRESSION: Patchy groundglass opacities at the posterior lung bases which are nonspecific but may represent pneu monia. Status post cholecystectomy. The common duct is distended measuring up to 1.1 cm with mild central in trahepatic biliary ductal dilatation which may be seen in the setting status post cholecystectomy. Surgical anastomosis small bowel of the terminal ileum, which is patent. Distal colonic surgical anas tomosis. No bowel wall thickening. No bowel obstruction. ELECTRONICALLY SIGNED BY: Lili Galvan MD Mar 02, 2020 12:31:07 AM [employer] This report is intended for review by the ordering physician only, in accordance of law. If you recei ve this report in error, please call [facility] at [phone]. FINAL REPORT CT ABDOMEN AND PELVIS: Comparison is made to recent CT 02/23/2020. Ground-glass opacities in posterior lung bases as described on preliminary report. No acute intraabdominal process. I am in agreement with the preliminary report. POS: AGW
[2020-03-02 11:35] LABS: SARS-CoV-2 MS2 Positive; SARS-CoV-2 N Gene Negative; SARS-CoV-2 S Gene Negative; SARS-CoV-2 by NAA Not Detected (NotDetected); SARS-CoV-2 orf1ab Negative
== END 2020-03-02 03:09 | disposition home or self-care (01) ==
LOC: ERS 22:14
DX: R07.89 Other chest pain (principal); Z20.828 Contact with and (suspected) exposure to other viral communicable diseases; Z79.899 Other long term (current) drug therapy; I10 Essential (primary) hypertension; E78.00 Pure hypercholesterolemia, unspecified; F32.9 Major depressive disorder, single episode, unspecified
CPT/HCPCS: 71045; 74177; 80053; 82550; 83690; 83880; 84484; 85025; 85379; 93005; 99285; U0003; 36415; 87635; Q9967

== ENCOUNTER 2020-06-02 09:25 | Outpatient (CLI) | payer MEDICARE, BC ==
--- NOTE | 2020-06-02 10:36 | CT ---
EXAM: CT chest, abdomen, and pelvis with IV contrast: HISTORY: Malignant neoplasm of unspecified ovary. COMPARISON: CT abdomen and pelvis on 03/02/2020 FINDINGS: CT THORAX: Lungs: There is biapical pleural and parenchymal scarring. There is mild pleural-based patchy densiti es lateral aspect of each upper lobe also likely due to areas of scarring and chronic lung changes. No discrete pulmonary nodule or mass is seen. No parenchymal consolidation is identified. There is mi nimal atelectasis versus scarring posterior aspect of each lung base. Pleura: No pleural effusion. Lymph nodes: No enlarged lymph nodes are seen by CT size criteria. Mediastinum: Minimal atherosclerotic plaque and vascular calcifications are seen involving the thorac ic aorta. Chest wall: No abnormalities CT ABDOMEN AND PELVIS: Liver: There are surgical clips again seen in the region of the falciform ligament with multiple surg ical clips also seen adjacent to the medial aspect right hepatic lobe and in the epigastric region. No focal hepatic lesion is seen. Gallbladder: Surgically absent. The common duct is dilated likely related to reservoir effect. Pancreas: Within normal limits. Spleen:Surgically absent. Adrenal glands: Within normal limits. Kidneys: Within normal limits. Urinary Bladder: The urinary bladder is unremarkable. Reproductive organs: Evidence of hysterectomy. Multiple surgical clips are seen in the left pelvis. Bowel: There is suggested focal thickening involving the mid transverse colon which is probably attri butable to peristalsis. This difficult further evaluate on this exam. Adenopathy:No enlarged lymph nodes are seen within the abdomen or pelvis by CT size criteria. Peritoneum: No free fluid or fluid collection is seen. No free intraperitoneal gas is identified. No mass is seen involving the peritoneum. Abdominal wall: No abnormalities seen. Osseous structures: No suspicious lytic or sclerotic osseous lesion. IMPRESSION: 1. No CT findings seen to suggest metastatic disease. 2. Postoperative changes of the abdomen and pelvis. 3. Mild thickening and narrowing involving the mid transverse colon. This is felt to be related to fo katarzyna area of peristalsis. However, this cannot be further evaluated on this exam. 4. Pleural and parenchymal scarring upper lobes and lung apices bilaterally.
[2020-06-02] MEDS ORDERED: Iopamidol-370 76% 500 ML 1 ML ONE (14:19)
== END 2020-06-02 09:26 | disposition home or self-care (01) ==
LOC: BICCT 09:25
PROVIDERS: ATTEND Internal Medicine Hematology & Oncology
DX: C56.9 Malignant neoplasm of unspecified ovary (principal); K63.89 Other specified diseases of intestine; J98.4 Other disorders of lung; Z98.890 Other specified postprocedural states
CPT/HCPCS: 36415; 71260; 74177; 80053; 82565; 86304; Q9967

== ENCOUNTER 2020-07-28 10:56 | Emergency (ER) | payer MEDICARE, BC ==
[2020-07-28] MEDS ORDERED: Iopamidol-370 76% 500 ML 1 ML ONE (12:23)
[2020-07-28] MEDS ORDERED: Dexamethasone 10 MG/ML VIAL ONE (13:09)
[2020-07-28] MEDS ORDERED: Ketorolac Tromethamine 30 MG/ML VIAL ONE (13:09)
[2020-07-28 13:20] LABS: Bacteria/HPF None Seen HPF (None Seen); Bilirubin Negative (Negative); Blood, Urine Trace (Negative); Clarity Clear (Clear); Glucose, Urine (Dipstick) Normal (Negative); Ketone, Urine Negative (Negative); Leukocyte Negative Leu/uL (Negative); Nitrite Negative (Negative); Protein, Urine (Dipstick) 20 mg/dL (Neg-Trace); Specific Gravity, Urine 1.031 (1.002-1.036); Squamous Epithelial 0-3 HPF (0-3); Urobilinogen Normal mg/dL (Less than 2); WBC/HPF 0-3 HPF (0-3)
[2020-07-28 13:28] LABS: #Basophils 0.1 thou/uL (0.0-0.2); #Eosinphils 0.1 thou/uL (0.0-0.7); #Lymphocytes 4.2 thou/uL (1.20-3.40); #Neutrophils 5.1 thou/uL (1.40-6.50); %Basophils 0.6 % (0.0-1.0); %Eosinophils 1.1 % (0.0-10.0); %Lymphocytes 40.5 % (21.0-51.0); %Monocytes 9.3 % (0.0-10.0); %Neutrophils 48.6 % (42.0-75.0); Hemoglobin 14.1 g/dL (12.0-16.0); Mean Corpuscular Volume 94.3 fL (78.0-98.0); Mean Platelet Volume 8.1 fL (7.4-10.4); Platelet Count 276 thou/uL (130-400); RBC Distribution Width 12.9 % (11.5-14.5); Red Blood Cell (RBC) Count 4.39 mill/uL (4.20-5.40); White Blood Cell (WBC) Count 10.4 thou/uL (4.8-10.8)
[2020-07-28] MEDS ORDERED: Ondansetron PF 4 MG/2 ML Vial ONE (14:06)
[2020-07-28] MEDS ORDERED: Morphine 4 MG/ML VIAL ONE (14:06)
[2020-07-28 15:12] LABS: Calcium 9.3 mg/dL (7.8-10.44); Chloride 105 mmol/L (98-107); Potassium 4.1 mmol/L (3.5-5.1); Sodium 138 mmol/L (136-145)
[2020-07-28 15:13] LABS: Glucose 100 mg/dL (83-110)
[2020-07-28 15:14] LABS: Globulin 3.1 g/dL (2.4-3.5); Protein, Total 7.1 g/dL (5.8-8.1)
[2020-07-28 15:15] LABS: Anion Gap 13 mmol/L (10-20); Bilirubin, Total 0.5 mg/dL (0.2-1.2); Carbon Dioxide 24 mmol/L (23-31)
[2020-07-28 15:16] LABS: Alkaline Phosphatase 79 U/L (40-110)
[2020-07-28 15:17] LABS: BUN (Urea Nitrogen) 17 mg/dL (9.8-20.1); Calc. Creatinine Clearance 0 mL/min (70-130)
[2020-07-28 15:18] LABS: AST (SGOT) 27 U/L (5-34)
[2020-07-28 15:19] LABS: ALT (SGPT) 13 U/L (8-55)
[2020-07-28] MEDS ORDERED: Ondansetron ODT 4 MG TAB ONE (16:29)
== END 2020-07-28 16:56 | disposition home or self-care (01) ==
LOC: ERS 10:56
DX: M46.1 Sacroiliitis, not elsewhere classified (principal); R59.9 Enlarged lymph nodes, unspecified; I10 Essential (primary) hypertension; E78.00 Pure hypercholesterolemia, unspecified; Z79.899 Other long term (current) drug therapy
CPT/HCPCS: 36415; 74177; 80053; 81003; 81015; 85025; 93005; 96372; 96374; 96375; J1100; J1885; J2270; J2405; Q0162; Q9967

== ENCOUNTER 2021-01-07 12:17 | Outpatient (CLI) | payer MEDICARE, BC | END 2021-01-07 12:18 | disposition home or self-care (01) | LOC: ULT 12:17 | PROVIDERS: ATTEND Specialist | DX: C56.9 Malignant neoplasm of unspecified ovary (principal); I82.621 Acute embolism and thrombosis of deep veins of right upper extremity ==

== ENCOUNTER 2021-02-21 09:24 | Outpatient (CLI) | payer MEDICARE, BC | END 2021-02-21 09:25 | disposition home or self-care (01) | LOC: BICCT 09:24 | PROVIDERS: ATTEND Internal Medicine Hematology & Oncology | DX: C56.9 Malignant neoplasm of unspecified ovary (principal) | CPT/HCPCS: 71260; 74177 ==

== ENCOUNTER 2021-02-25 09:21 | Outpatient (CLI) | payer MEDICARE, BC ==
[2021-02-25] MEDS ORDERED: Iopamidol 370 76% 100 ML VIAL ONE (12:40)
== END 2021-02-25 09:22 | disposition home or self-care (01) ==
LOC: CT 09:21
PROVIDERS: ATTEND Internal Medicine Hematology & Oncology
DX: R22.1 Localized swelling, mass and lump, neck (principal)
CPT/HCPCS: 70491; Q9967

== ENCOUNTER 2021-03-08 11:58 | Observation (INO) | payer MEDICARE, BC ==
[~2021-03-08 11:58] MED LIST changes: -Iopamidol 370 76% 50 ML VIAL FS ONE; +Iopamidol-370 76% 500 ML 1 ML ONE
[2021-03-08 12:47] LABS: #Basophils 0.1 thou/uL (0.0-0.2); #Eosinphils 0.2 thou/uL (0.0-0.7); #Lymphocytes 4.5 thou/uL (1.20-3.40); #Monocytes 1.1 thou/uL (0.11-0.59); #Neutrophils 4.1 thou/uL (1.40-6.50); %Basophils 0.8 % (0.0-1.0); %Eosinophils 2.1 % (0.0-10.0); %Lymphocytes 44.7 % (21.0-51.0); %Monocytes 11.4 % (0.0-10.0); %Neutrophils 41.1 % (42.0-75.0); Hemoglobin 14.3 g/dL (12.0-16.0); Mean Corpuscular HGB CONC 32.8 g/dL (32.0-36.0); Mean Corpuscular Hemoglobin 32.8 pg (27.0-31.0); Mean Platelet Volume 8.2 fL (7.4-10.4); Platelet Count 271 thou/uL (130-400); RBC Distribution Width 12.8 % (11.5-14.5); Red Blood Cell (RBC) Count 4.37 mill/uL (4.20-5.40)
[2021-03-08] MEDS ORDERED: Morphine 4 MG/ML VIAL ONE (13:11)
[2021-03-08] MEDS ORDERED: Aspirin Chewable 81 MG TAB ONE (13:12)
[2021-03-08] MEDS ORDERED: Nitroglycerin 2% Ointment 1 INCH/1 GM Packet ONE (13:12)
[2021-03-08] MEDS ORDERED: Ondansetron PF 4 MG/2 ML Vial ONE (13:12)
[2021-03-08 13:13] LABS: ALT (SGPT) 16 U/L (8-55); AST (SGOT) 28 U/L (5-34); Albumin 3.7 g/dL (3.4-4.8); Alkaline Phosphatase 87 U/L (40-110); Anion Gap 15 mmol/L (10-20); BUN (Urea Nitrogen) 17 mg/dL (9.8-20.1); Bilirubin, Total 0.4 mg/dL (0.2-1.2); Calc. Creatinine Clearance 0 mL/min (70-130); Calcium 9.6 mg/dL (7.8-10.44); Carbon Dioxide 23 mmol/L (23-31); Chloride 105 mmol/L (98-107); Globulin 3.5 g/dL (2.4-3.5); Glucose 112 mg/dL (83-110); Protein, Total 7.2 g/dL (5.8-8.1); Sodium 139 mmol/L (136-145)
[2021-03-08 15:19] LABS: Troponin I Less than 0.010 ng/mL (< 0.028)
[2021-03-08] MEDS ORDERED: Nitroglycerin 0.4 MG TAB (25 Tab Bottle) SL PRN (17:04)
[2021-03-08 18:16] LABS: Troponin I Less than 0.010 ng/mL (< 0.028)
[2021-03-08 20:11] VITALS: BMI 28.0
[2021-03-08] MEDS ORDERED: Atorvastatin Calcium 10 MG TAB PO SCH (21:00)
[2021-03-09 01:38] LABS: SARS-CoV-2 PCR by NAA Not Detected (NotDetected)
[2021-03-09 07:39] VITALS: TEMP 98
[2021-03-09] MEDS ORDERED: Aspirin 325 mg Enteric Coated Tablet PO SCH (09:00)
[2021-03-09] MEDS ORDERED: Hydrochlorothiazide 25 MG TAB PO SCH (09:00)
[2021-03-09] MEDS ORDERED: Rivaroxaban 10 MG TAB PO SCH (09:00)
[2021-03-09] MEDS ORDERED: Amlodipine 10 MG TAB PO SCH (09:00)
[2021-03-09] MEDS ORDERED: ADENOSINE 60 MG/20 ML VIAL ONE (09:12)
[2021-03-09 10:56] VITALS: BP 157/71
== END 2021-03-09 13:33 | disposition home or self-care (01) ==
LOC: ERS 11:58 → ERHOLD 15:17 → 2SW 18:59
PROVIDERS: ADMIT Internal Medicine; ATTEND Internal Medicine
DX: R07.89 Other chest pain (principal); I10 Essential (primary) hypertension; E78.5 Hyperlipidemia, unspecified; Z86.718 Personal history of other venous thrombosis and embolism; Z79.01 Long term (current) use of anticoagulants; Z79.899 Other long term (current) drug therapy; Z90.49 Acquired absence of other specified parts of digestive tract; Z20.822 Contact with and (suspected) exposure to COVID-19
CPT/HCPCS: 71275; 78452; 80053; 84484 ×2; 85025; 93005; 93017; 99285; A9500; G0378 ×3; U0003; U0005; 36415; J0153; J2270; J2405; Q9967

== ENCOUNTER 2021-03-29 11:54 | Outpatient (CLI) | payer MEDICARE, BC | END 2021-03-29 11:55 | disposition home or self-care (01) | LOC: BICMAMMO 11:54 | PROVIDERS: ATTEND Family Medicine | DX: Z12.31 Encounter for screening mammogram for malignant neoplasm of breast (principal); Z85.43 Personal history of malignant neoplasm of ovary | CPT/HCPCS: 77063; 77067 ==

== ENCOUNTER 2021-10-07 09:03 | Outpatient (CLI) | payer MEDICARE, BC ==
[~2021-10-07 09:03] MED LIST changes: +ISOVUE-370 76%-LOCM 1 ML ONE; -Iopamidol-370 76% 500 ML 1 ML ONE
== END 2021-10-07 09:04 | disposition home or self-care (01) ==
LOC: BICCT 09:03
PROVIDERS: ATTEND Internal Medicine Hematology & Oncology
DX: C56.9 Malignant neoplasm of unspecified ovary (principal); R97.1 Elevated cancer antigen 125 [CA 125]
CPT/HCPCS: 74177; Q9966

== ENCOUNTER 2021-11-22 13:15 | Outpatient (CLI) | payer MEDICARE, BC | END 2021-11-22 13:16 | disposition home or self-care (01) | LOC: PET 13:15 | PROVIDERS: ATTEND Internal Medicine Hematology & Oncology | DX: C56.1 Malignant neoplasm of right ovary (principal); R97.1 Elevated cancer antigen 125 [CA 125] | CPT/HCPCS: 78815; A9552 ==

== ENCOUNTER 2022-01-24 11:45 | Outpatient (CLI) | payer MEDICARE, BC | END 2022-01-24 11:46 | disposition home or self-care (01) | LOC: PET 11:45 | PROVIDERS: ATTEND Internal Medicine Hematology & Oncology | DX: C56.1 Malignant neoplasm of right ovary (principal) | CPT/HCPCS: 78815; A9552 ==

== ENCOUNTER 2022-01-31 19:14 | Emergency (ER) | payer MEDICARE, BC ==
[~2022-01-31 19:14] MED LIST changes: -ISOVUE-370 76%-LOCM 1 ML ONE; +Iopamidol-370 76% 500 ML 1 ML ONE
[2022-01-31 20:02] LABS: #Basophils 0.1 thou/uL (0.0-0.2); #Eosinphils 0.1 thou/uL (0.0-0.7); #Lymphocytes 4.1 thou/uL (1.20-3.40); #Monocytes 0.9 thou/uL (0.11-0.59); #Neutrophils 4.5 thou/uL (1.40-6.50); %Basophils 1.1 % (0.0-1.0); %Eosinophils 1.3 % (0.0-10.0); %Monocytes 9.2 % (0.0-10.0); %Neutrophils 46.4 % (42.0-75.0); Hemoglobin 14.8 g/dL (12.0-16.0); Mean Corpuscular HGB CONC 31.9 g/dL (32.0-36.0); Mean Corpuscular Hemoglobin 30.4 pg (27.0-31.0); Mean Corpuscular Volume 95.1 fl (78.0-98.0); Mean Platelet Volume 8.3 fL (7.4-10.4); Platelet Count 313 thou/uL (130-400); RBC Distribution Width 13.2 % (11.5-14.5); Red Blood Cell (RBC) Count 4.88 mill/uL (4.20-5.40); White Blood Cell (WBC) Count 9.8 thou/uL (4.8-10.8)
[2022-01-31 20:24] LABS: ALT (SGPT) 14 U/L (8-55); AST (SGOT) 21 U/L (5-34); Alkaline Phosphatase 93 U/L (40-110); Anion Gap 14 mmol/L (10-20); BUN (Urea Nitrogen) 24 mg/dL (9.8-20.1); Bilirubin, Total 0.5 mg/dL (0.2-1.2); Calc. Creatinine Clearance 0 mL/min (70-130); Calcium 10.5 mg/dL (7.8-10.44); Carbon Dioxide 26 mmol/L (23-31); Chloride 101 mmol/L (98-107); Estimated GFR 53; Globulin 3.9 g/dL (2.4-3.5); Glucose 101 mg/dL (83-110); Lipase 28 U/L (8-78); Potassium 3.9 mmol/L (3.5-5.1); Protein, Total 7.9 g/dL (5.8-8.1); Sodium 137 mmol/L (136-145)
[2022-01-31 20:27] LABS: Bacteria/HPF Rare-Few HPF (None Seen); Bilirubin Negative (Negative); Blood, Urine Negative (Negative); Clarity Clear (Clear); Glucose, Urine (Dipstick) Normal (Negative); Ketone, Urine Negative (Negative); Leukocyte 75 Leu/uL (Negative); Nitrite Negative (Negative); Protein, Urine (Dipstick) 200 mg/dL (Neg-Trace); RBC/HPF 0-3 HPF (0-3); Specific Gravity, Urine 1.007 (1.002-1.036); Squamous Epithelial 0-3 HPF (0-3); Urobilinogen Normal mg/dL (Less than 2); pH, Urine 5.5 (5.0-9.0)
[2022-01-31] MEDS ORDERED: Cephalexin 250 MG CAP ONE (23:15)
== END 2022-01-31 23:33 | disposition home or self-care (01) ==
LOC: ERS 19:14
DX: N30.00 Acute cystitis without hematuria (principal); N13.30 Unspecified hydronephrosis; R59.0 Localized enlarged lymph nodes; I10 Essential (primary) hypertension; E78.5 Hyperlipidemia, unspecified; Z79.899 Other long term (current) drug therapy
CPT/HCPCS: 36415; 74177; 80053; 81003; 81015; 83605; 83690; 85025; Q9967

== ENCOUNTER 2022-05-03 10:52 | Outpatient (CLI) | payer MEDICARE, BC | END 2022-05-03 10:53 | disposition home or self-care (01) | LOC: BICMAMMO 10:52 | PROVIDERS: ATTEND Family Medicine | DX: Z12.31 Encounter for screening mammogram for malignant neoplasm of breast (principal); Z85.43 Personal history of malignant neoplasm of ovary | CPT/HCPCS: 77063; 77067 ==

== ENCOUNTER 2022-06-05 08:33 | Outpatient (CLI) | payer MEDICARE, BC ==
[2022-06-05] MEDS ORDERED: Iopamidol 370 76% 100 ML VIAL ONE (08:37)
== END 2022-06-05 08:34 | disposition home or self-care (01) ==
LOC: CT 08:33
PROVIDERS: ATTEND Internal Medicine Hematology & Oncology
DX: C56.9 Malignant neoplasm of unspecified ovary (principal); R91.1 Solitary pulmonary nodule; K76.89 Other specified diseases of liver; K59.00 Constipation, unspecified; Z98.890 Other specified postprocedural states; Z90.710 Acquired absence of both cervix and uterus; Z90.49 Acquired absence of other specified parts of digestive tract
CPT/HCPCS: 74177; Q9967

== ENCOUNTER 2023-03-14 07:54 | Outpatient (CLI) | payer MEDICARE, BC ==
[2023-03-14] MEDS ORDERED: Iopamidol 370 76% 100 ML VIAL ONE (10:08)
== END 2023-03-14 07:55 | disposition home or self-care (01) ==
LOC: CT 07:54
PROVIDERS: ATTEND Internal Medicine Hematology & Oncology
DX: C56.9 Malignant neoplasm of unspecified ovary (principal)
CPT/HCPCS: 71260; 74177; Q9967

== ENCOUNTER 2023-05-21 09:01 | Outpatient (CLI) | payer MEDICARE, BC ==
[2023-05-21] MEDS ORDERED: Iopamidol 370 76% 100 ML VIAL ONE (10:54)
== END 2023-05-21 09:02 | disposition home or self-care (01) ==
LOC: CT 09:01
PROVIDERS: ATTEND Internal Medicine Hematology & Oncology
DX: C56.1 Malignant neoplasm of right ovary (principal); R97.1 Elevated cancer antigen 125 [CA 125]; R59.0 Localized enlarged lymph nodes; R91.1 Solitary pulmonary nodule; Z98.890 Other specified postprocedural states
CPT/HCPCS: 71260; 74177; 82565

== ENCOUNTER 2023-05-28 10:52 | Outpatient (CLI) | payer MEDICARE, BC | END 2023-05-28 10:53 | disposition home or self-care (01) | LOC: BICMAMMO 10:52 | PROVIDERS: ATTEND Family Medicine | DX: Z12.31 Encounter for screening mammogram for malignant neoplasm of breast (principal); Z85.43 Personal history of malignant neoplasm of ovary | CPT/HCPCS: 77063; 77067 ==

== ENCOUNTER 2023-10-01 07:45 | Outpatient (CLI) | payer MEDICARE, BC | END 2023-10-01 07:46 | disposition home or self-care (01) | LOC: CT 07:45 | PROVIDERS: ATTEND Internal Medicine Hematology & Oncology | DX: C56.1 Malignant neoplasm of right ovary (principal); R59.9 Enlarged lymph nodes, unspecified; R91.1 Solitary pulmonary nodule; C77.2 Secondary and unspecified malignant neoplasm of intra-abdominal lymph nodes; E07.89 Other specified disorders of thyroid | CPT/HCPCS: 70491; 71260; 74177 ==

== ENCOUNTER 2024-01-25 12:49 | Outpatient (CLI) | payer MEDICARE, BC ==
[~2024-01-25 12:49] MED LIST changes: +Iopamidol 370 76% 100 ML VIAL ONE; -Iopamidol-370 76% 500 ML 1 ML ONE
== END 2024-01-25 12:50 | disposition home or self-care (01) ==
LOC: CT 12:49
PROVIDERS: ATTEND Internal Medicine Hematology & Oncology
DX: C56.1 Malignant neoplasm of right ovary (principal); R91.1 Solitary pulmonary nodule; R59.0 Localized enlarged lymph nodes; M89.9 Disorder of bone, unspecified
CPT/HCPCS: 36415; 70491; 71260; 74177; 82565; Q9967